=== PATIENT | female | born 1975 | race Caucasian/White ===

== ENCOUNTER 2018-01-16 08:48 | Day surgery (SDC) | payer OTHER ==
[~2018-01-16 08:48] MED LIST: CEFAZOLIN/SWI 2gm 2 GM/20 ML SYR IV SCH
[2018-01-16 09:12] LABS: Specific Gravity 1.015 (1.005-1.030)
[2018-01-16] MEDS ORDERED: Ringers Lactate 1,000 ML IV ONE ×2 (09:35→11:25)
[2018-01-16] MEDS ORDERED: SCOPOLAMINE HYDROBROMIDE PATCH TD ONE (09:35)
[2018-01-16] MEDS ORDERED: FENTANYL CITR 100 MCG/2 ML ONE (09:56)
[2018-01-16] MEDS ORDERED: MIDAZOLAM HCL 2 MG/2 ML INJ ONE (09:56)
[2018-01-16] MEDS ORDERED: LIDOCAINE 2% MPF 5 ML VIAL ONE (09:57)
[2018-01-16] MEDS ORDERED: PROPOFOL 200 MG/20 ML VIAL IV ONE (09:57)
[2018-01-16] MEDS ORDERED: ROCURONIUM 50 MG/5 ML VIAL IV ONE (09:57)
[2018-01-16] MEDS ORDERED: DIPHENHYDRAMINE 50 MG/ML VIAL ONE (10:26)
[2018-01-16] MEDS ORDERED: DEXAMETHASONE 10 MG/ML VIAL ONE (10:26)
[2018-01-16] MEDS ORDERED: ONDANSETRON 4 MG/2 ML VIAL ONE (10:26)
[2018-01-16] MEDS ORDERED: KETOROLAC 30 MG/ML INJ ONE (11:07)
[2018-01-16] MEDS ORDERED: FENTANYL CITR 250 MCG/5 ML ONE (11:10)
[2018-01-16] MEDS ORDERED: EPHEDRINE SULF 50 MG/5 ML SYR ONE (11:13)
[2018-01-16] MEDS ORDERED: LIDOCAINE 1% W/EPI 1:100,000 MDV 50 ML VIAL ONE (11:25)
[2018-01-16] MEDS: MEPERIDINE HCL 50 MG/ML AMP ONE ×4 (13:15→13:35)
--- NOTE | 2018-01-17 00:27 | OP ---
Date of Procedure: 01/16/2018 Surgeon: Severiano Whitlock MD Shipsmith: ZACH Tate. Preoperative Diagnoses: 1.Bilateral symptomatic macromastia. 2.Intertrigo. 3.Neck and back pain. 4.Shoulder grooving. 5.Asymmetry. Postoperative Diagnoses: 1.Bilateral symptomatic macromastia. 2.Intertrigo. 3.Neck and back pain. 4.Shoulder grooving. 5.Asymmetry. Operation Performed: Bilateral reduction mammoplasty using Briones pattern inferior pedicle technique, CPT 46903-26. Anesthesia: General endotracheal anesthesia and local anesthetic of 20 cc of 1% lidocaine with epine phrine 1:100,000. Blood Loss: 100 cc. Specimens Sent: Right breast 744 g with a stitch at 12 o'clock anterosuperior, left breast 940 g wit h a stitch at 12 o'clock anterosuperior. Complications: There were no complications. All needle, sponge, and instrument counts were correct at the end of the case. Indications: The patient is 42-year-old white female with bilateral symptomatic macromastia, intertr igo, neck and back pain, shoulder grooving and asymmetry, now here for bilateral reduction mammoplast y. The patient understands the risks, limitations of the procedure, anesthesia, limitations of her o wn anatomy, asymmetries, and tissue quality and wishes to proceed. Operation In Detail: The patient was seen in the preoperative holding area. The operative plan revi ewed reiterating that the breasts were asymmetrical and likely not be perfect. She was marked for a Briones pattern inferior pedicle technique with a base of approximately 10 cm. After marking her, TIEN h ose and sequential compression devices were placed on lower extremities. IV antibiotics, Ancef 2 g I V piggyback was given prior to the skin incision within 1 hour. The patient was brought to the opera ting suite, placed in a comfortable supine position on the bed. After induction of general anesthesi a, the arms were padded at the side and taped across the lower abdomen. Following this, based on pre operative markings, her breasts were injected with local anesthetic of total of 20 cc of 1% lidocaine with epinephrine. After injecting the local anesthetic, the breasts were then prepped and draped in sterile fashion with Betadine in similar fashion bilaterally. The areolas were marked with a 42 mm nipple areola marker and then the area around was de-epithelialized including a pedicle of 10 cm base width and based inferiorly. Next based on preoperative markings, the pedicle was developed maintain ing its vascular supply and then a flap was undermined at the level of the chest wall to create a sup erior based flap and based on preoperative markings, the reduction was carried out both superior medi al and lateral as en bloc resection with total of 744 g removed on the right and 940 g removed on the left. The breast was then tailor tacked together and minor adjustments in the skin of the local [facility] and a hole was cut out from the nipple-areolar complex, which was then set first with a Betadine-so aked 2-0 Eden-Zoltan pursestring suture to set the diameter of 38 mm, and then the areola was sutured in place with a running subcuticular 4-0 Monocryl and 5-0 rapid absorb suture to smooth out and get a f inal closure of the skin. The vertical and horizontal incisions were then closed with a deep subderm al subcutaneous layer of interrupted 2-0 PDS and running subcuticular 4-0 Monocryl. At the end of case, both nipple-areolar complexes had brisk capillary refill with no congestion and had much impr tin symmetry. The patient was then dressed with Xeroform gauze, ABD pads, Kerlix, and Yoan wrap, was extubated and taken to recovery in stable condition where she will be discharged home when she meets hospital criteria for discharge. She will be advanced to diet regular as tolerated. She has tramad ol, take as directed for pain as needed. One Zofran ODT to take as directed as needed for nausea. O ral doxycycline take as directed. She also has instructions for activity limitations, positioning fo r comfort, use of ice, resume showering, use of antibacterial soaps and pads and antibiotic ointment. She will have first dressing change in the office, tomorrow for a wound check. GP/MODL Voice ID: [id number] Report ID: [id number]
== END 2018-01-16 14:52 | disposition home or self-care (01) ==
LOC: OR 08:48
PROVIDERS: ATTEND Surgery Plastic and Reconstructive Surgery
PROC: 0HBV0ZZ Excision of Bilateral Breast, Open Approach (ICD-10-PCS; principal; 2018-01-16 10:00)
DX: N62 Hypertrophy of breast (principal); L30.4 Erythema intertrigo; N64.89 Other specified disorders of breast; M54.2 Cervicalgia; M54.9 Dorsalgia, unspecified; E07.9 Disorder of thyroid, unspecified; M19.90 Unspecified osteoarthritis, unspecified site; F32.9 Major depressive disorder, single episode, unspecified; Z98.51 Tubal ligation status; Z80.9 Family history of malignant neoplasm, unspecified; Z83.3 Family history of diabetes mellitus; Z82.49 Family history of ischemic heart disease and other diseases of the circulatory system; Z82.5 Family history of asthma and other chronic lower respiratory diseases
CPT/HCPCS: 81025; 88305; J0690; J1100; J2175; J2250; J2405; J3010